=== PATIENT | female | born 1965 | race African-American/Black ===

== ENCOUNTER 2019-08-27 06:45 | Day surgery (SDC) | payer MEDICAID ==
[~2019-08-27] VITALS: Ht 144.8 cm; Wt 95.0 kg
[~2019-08-27 06:45] MED LIST: ALBU8HFA IH; ESCI10TA PO; HYDR-3965 PO; LORA-366 PO; METO25XL PO; NAPR-1024 PO; QUET400T PO; SODIUM CHLORIDE 0.9% 1,000 ML ONE
[2019-08-27] MEDS ORDERED: SODIUM CHLORIDE 0.9% 1,000 ML IV ONE (07:00)
[2019-08-27] MEDS ORDERED: MIDAZOLAM HCL 2 MG/2 ML VIAL ONE (07:44)
[2019-08-27] MEDS ORDERED: FentaNYL CITRATE-PF 100 MCG/2 ML VIAL ONE (07:44)
[2019-08-27 07:49] LABS: GLUCOMETER DEV NAME(LOC) SDS.; GLUCOSE,POINT OF CARE 100 MG/DL (70-110)
[2019-08-27] MEDS ORDERED: MethylPREDNISolone SOD SUCC 125 MG/2 ML VIAL IVP ONE (09:00)
[2019-08-27] MEDS ORDERED: MethylPREDNISolone SOD SUCC 125 MG/2 ML VIAL ONE (09:10)
[2019-08-27] MEDS ORDERED: OXYGEN THERAPY IH SCH (20:00)
== END 2019-08-27 11:40 | disposition home or self-care (01) ==
LOC: SURGERY 06:45
PROVIDERS: ATTEND Internal Medicine Critical Care Medicine
DX: R05 Cough (principal); R91.1 Solitary pulmonary nodule; J34.89 Other specified disorders of nose and nasal sinuses; J98.8 Other specified respiratory disorders; J38.4 Edema of larynx; B37.0 Candidal stomatitis; R19.09 Other intra-abdominal and pelvic swelling, mass and lump; Z79.899 Other long term (current) drug therapy
CPT/HCPCS: 31623; 31624; 71045; 82962; 87015; 87070; 87077; 87101; 87186; 87205; 87206; 87220; 88108; 88184; 88185; 88312; J2250; J2930; J3010; J7030